=== PATIENT | female | born 1970 | race Caucasian/White ===

== ENCOUNTER 2021-02-11 04:00 | Emergency (ER) | payer BC ==
[2021-02-11 05:39] LABS: HEMOGLOBIN 14.2 gm/dl (12.3-15.3); RED BLOOD COUNT 4.82 M/UL (4.00-5.10); WHITE BLOOD COUNT 9.1 K/UL (4.5-11.0)
[2021-02-11 08:10] LABS: BUN/CREATININE RATIO 9 (0-10)
[2021-02-11] MEDS ORDERED: MOTION SICKNESS25 M2 PO (09:00)
[2021-02-11] MEDS ORDERED: ZOFRAN ODT 4 MG4 MG PO (09:01)
== END 2021-02-11 09:35 | disposition home or self-care (01) ==
LOC: ER1 04:00
PROVIDERS: Physician Assistant Medical
DX: R42 Dizziness and giddiness (principal); R11.0 Nausea; I10 Essential (primary) hypertension; Z88.5 Allergy status to narcotic agent; Z88.0 Allergy status to penicillin; Z88.2 Allergy status to sulfonamides; Z79.899 Other long term (current) drug therapy; Z88.8 Allergy status to other drugs, medicaments and biological substances
CPT/HCPCS: 70450; 71045; 80053; 81001; 82550; 82553; 83690; 83874; 84484; 85025; 96374; 99284; J2405

== ENCOUNTER 2021-07-10 19:40 | Emergency (ER) | payer BC ==
[~2021-07-10 19:40] MED LIST: MOTION SICKNESS25 M2 PO; ZOFRAN ODT 4 MG4 MG PO
[2021-07-11 00:07] LABS: HEMOGLOBIN 13.9 gm/dl (12.3-15.3); RED BLOOD COUNT 5.06 M/UL (4.00-5.10); WHITE BLOOD COUNT 14.2 K/UL (4.5-11.0)
[2021-07-11 00:40] LABS: BUN/CREATININE RATIO 10 (0-10)
[2021-07-11] MEDS ORDERED: TORADOL 10 MG T10 MG PO (03:46)
== END 2021-07-11 04:12 | disposition home or self-care (01) ==
LOC: ER1 19:40
PROVIDERS: Family Medicine
DX: M79.661 Pain in right lower leg (principal); M79.651 Pain in right thigh; K21.9 Gastro-esophageal reflux disease without esophagitis; I10 Essential (primary) hypertension; Z88.8 Allergy status to other drugs, medicaments and biological substances; Z88.0 Allergy status to penicillin; Z88.5 Allergy status to narcotic agent
CPT/HCPCS: 80053; 85025; 85379; 93971; 96374; 99284; J1885